=== PATIENT | female | born 1990 | race African-American/Black ===

== ENCOUNTER 2024-04-18 11:49 | Emergency (ER) | payer BC, SELFPAY ==
[2024-04-18 11:51] VITALS: BP 146/103
--- NOTE | 2024-04-18 12:19 | ED.GENMED ---
History of Present Illness
General
Chief Complaint: Weakness
Source: patient
Time Seen by Provider: 04/18/24 12:00
History of Present Illness
History of Present Illness:
33yoF with a history of depression presenting with her for evaluation of night sweats. Symptoms have been ongoing for about 10 days. She states she will wake up in the middle of the night drenched in sweat. She had one episode yesterday that
occurred during the daytime. She also reports nausea, decreased appetite, and malaise. No known fevers. Of note, patient started to have uterine pain about 1.5 weeks ago. She discovered that her IUD was falling out so she removed the IUD at home.
She was seen by her OBGYN yesterday for a checkup. She was told that she had a small amount of discharge and swabs were taken, results still pending. She was supposed to have her menstrual period last week but has not started it yet. She had a small
clot earlier today but otherwise she denies any spotting or discharge. She also started with a cough 2-3 weeks ago and her children had a cough last week. No vomiting, diarrhea, dysuria, sore throat, congestion, recent travel.
Phy Exam
General Physical Exam
General Presentation: well appearing and no apparent distress
General age: appears stated age
General Skin: warm and dry
General Habitus: normal
General Mental: alert
General Hydration: appears well hydrated
ENT Exam
ENT Exam: pharynx normal and normocephalic
Cardiovascular Exam
Cardiovascular Exam: regular rate/rhythm and no murmur
Pulmonary Exam
Pulmonary Exam: lungs clear, no respiratory distress, no rales, no crackles, no rhonchi and no wheezing
Gastrointestinal Exam
Gastrointestinal Exam: non tender, soft and non distended
Neurological Exam
Neurological Exam: alert
Monty Coma Scale
Eye Opening: Spontaneous
Verbal Response: Oriented
Motor Response: Obeys Commands
GCS Total Score: 15
Skin Exam
Skin Exam: normal color and warm/dry
Psychiatric Exam
Psychiatric Exam: normal mood/affect
Course
Orders/Labs/Results
Orders:
Orders
04/18/24 12:17
Pelvis & Transvaginal US [US Pelvis W Transvag Combined] Urgent
Comment:
Reason For Exam: recent IUD removal, bleeding
04/18/24 12:18
Test Result ONCE
CR Chest - 2 Views Urgent
Comment:
Reason For Exam: Cough
04/18/24 12:41
COVID-19 Antigen Urgent
Source: Nasal Swab
Complete Blood Count/With Diff Urgent
Comprehensive Metabolic Panel Urgent
HCG, Serum Qualitative Screen Urgent
TSH Reflex To Free T4 Urgent
Influenza A+B Rapid Molecular Urgent
DIANE Source: Nasal Swab
Specimen Description:
04/18/24 12:43
Urinalysis Reflex To Culture Urgent
Date Specimen was Collected: 04/18/24
Time Specimen was Collected: 12:42
Abnormal Lab Results
04/18/24 04/18/24
12:41 12:43
WBC 4.0 L 10^3/uL
(4.8-10.8)
RBC 4.10 L 10^6/uL
(4.20-5.40)
Hct 34.6 L %
(37.0-47.0)
RDW 11.2 L %
(11.5-14.5)
MPV 10.6 H fL
(7.4-10.4)
BUN 5 L mg/dl
(7-17)
Glucose 104 H mg/dl
(70-99)
Alkaline Phosphatase 32 L U/L
(38-126)
Urine Ketones 2+ A
(Negative)
04/18/24 12:41
04/18/24 12:41
Vital Signs
Initial and Last Documented VS:
Initial Vital Signs
Temp Pulse Resp BP Pulse Ox
98.2 F 78 16 146/103 100
04/18/24 11:51 04/18/24 11:51 04/18/24 11:51 04/18/24 11:51 04/18/24 11:51
Last Documented Vital Signs
Temp Pulse Resp BP Pulse Ox
98.2 F 68 17 129/91 98
04/18/24 11:51 04/18/24 14:47 04/18/24 14:47 04/18/24 14:47 04/18/24 14:47
MDM/Problems Addressed
Differential Diagnosis Includes:
33yoF here with night sweats x 10 days. Also c/o nausea and decreased appetite. She recently removed her IUD and was seen by OBGYN yesterday. She was told that she had mild vaginal discharge on her exam although patient has not noticed any abnormal
discharge. VSS. Exam is unremarkable. Differential diagnosis includes but is not limited to: viral illness, pneumonia, thyroid dysfunction, less likely pelvic infection as patient denies any pelvic pain or discharge
Initial ED plan: Check CBC, CMP, HCG, COVID/flu swab, UA, CXR, and pelvic ultrasound.
*Critical Care Note
Total Time (30-74mins, 75-104mins- exclusive of procedures): Not Applicable
Update Note
Update Note:
White count is mildly low at 4 which patient states is baseline. Remainder of labs unremarkable including normal TSH. HCG negative. No evidence of infection on urinalysis. COVID/flu negative. CXR is clear. Pelvic ultrasound is negative for acute
findings and there is no pelvic free fluid. Only abnormal finding is 2 echogenic foci along the endometrium, likely small calcifications. Speculum exam performed. There is a small amount of bleeding during exam but cervix otherwise appears normal.
No significant discharge noted. No cervical motion tenderness. No clinical signs of PID on exam. Patient had vaginitis and GC/chlamydia vaginal swabs yesterday at her OBGYN office. Patient is stable for discharge. Unclear etiology of night sweats.
Advised close f/u with PCP and ED return precautions discussed. She was discharged in stable condition.
ED Attending Note
-
Portions of this chart may have been created with voice recognition software.� Occasional wrong word or��sound alike� substitutions may have occurred due to the inherent limitations of voice recognition software.
Discharge Plan
Departure
Patient Disposition: Home (Routine Discharge)
Date of Disposition: 04/18/24
Time of Disposition: 15:38
Patient with high blood pressure during this ER visit?: Yes
Discharge Problem:
Night sweats, Malaise
Instructions: Fatigue (DC)
Referrals:
O'WILFRIDO,PAUL [Other]
Activity Restrictions/Additional Instructions:
Please call your family doctor today to schedule a follow-up appointment. Return to the ER with any new or worsening symptoms.
Interventions
Interventions:
*Risk Screen - Suicide Last Done: 04/18/24 12:31
*General Assessment Last Done: 04/18/24 12:31
ED- Fall Risk Assessment Last Done: 04/18/24 12:33
*ED COVID-19 Vaccine History Last Done: 04/18/24 11:51
ED- Cardiac Assessment Last Done: 04/18/24 12:33
ED- Neurological Assessment Last Done: 04/18/24 12:33
ED- Pulmonary Assessment Last Done: 04/18/24 12:33
Discharge Date and Time
Print Language: CROATIAN
[2024-04-18 12:30] VITALS: BMI 20.7
[2024-04-18 12:59] LABS: % Basophils 0.7 % (0-2); % Immature Granulocytes 0.2 % (0-0.5); % Lymphocytes 29.2 % (20.5-51.1); % Neutrophils 63.9 % (42.2-75.2); Absolute Lymphocytes 1.2 10^3/uL (1.2-3.4); Absolute Monocytes 0.2 10^3/uL (0.1-0.6); Absolute Neutrophils 2.6 10^3/uL (1.4-6.5); Hematocrit 34.6 % (37.0-47.0); Mean Corp Hgb Conc. 34.7 g/dL (33.0-37.0); Mean Corpuscular Hgb 29.3 pg (27.0-31.0); Mean Corpuscular Volume 84.4 fL (81.0-99.0); Mean Platelet Volume 10.6 fL (7.4-10.4); Nucleated Red Blood Cells % 0 %; Platelet Count 222 10^3/uL (130-400); Red Cell Dist. Width 11.2 % (11.5-14.5)
[2024-04-18 13:04] LABS: Urine Albumin Negative (Neg - Trace); Urine Bilirubin Negative (Negative); Urine Character Clear (Clear); Urine Color Yellow; Urine Glucose Negative (Negative); Urine Ketone 2+ (Negative); Urine Leukocyte Negative (Negative); Urine Nitrite Negative (Negative); Urine Occult Blood Negative (Negative); Urine Urobilinogen Negative (Neg - 1+); Urine pH 6.5 (5.0-9.0)
[2024-04-18 13:07] LABS: COVID-19 Antigen Negative (Negative)
[2024-04-18 13:19] LABS: HCG, Serum Qualitative Screen Negative
[2024-04-18 13:22] LABS: ALT (SGPT) 20 U/L (0-35); AST (SGOT) 23 U/L (14-36); Albumin 4.9 g/dl (3.5-5.0); Alkaline Phosphatase 32 U/L (38-126); Blood Urea Nitrogen 5 mg/dl (7-17); Calcium 9.3 mg/dl (8.4-10.2); Carbon Dioxide 25 mmol/L (22-30); Chloride 103 mmol/L (98-107); Estimated Creatinine Clearance > 125 ml/min; Glucose 104 mg/dl (70-99); Potassium 3.6 mmol/L (3.5-5.1); Sodium 142 mmol/L (135-145); Total Bilirubin 0.6 mg/dl (0.2-1.3); Total Protein 7.7 g/dl (6.3-8.2); eGFR > 60.00
[2024-04-18 13:57] LABS: TSH Reflex To Free T4 0.74 uIU/ml (0.47-4.68)
[2024-04-18 14:47] VITALS: BP 129/91
[2024-04-18 15:49] VITALS: BP 127/91
== END 2024-04-18 15:50 | disposition home or self-care (01) ==
LOC: EMR 11:49
PROVIDERS: Physician Assistant; EMERGENCY PHYSICIAN Emergency Medicine
DX: R61 Generalized hyperhidrosis (principal); R53.81 Other malaise
CPT/HCPCS: 99284; 71046; 76830; 76856; 80053; 81003; 84443; 84703; 85025; 87502; 87811